=== PATIENT | male | born 1985 | race Caucasian/White ===

== ENCOUNTER 2017-06-18 01:23 | Emergency (ER) | payer BC ==
[~2017-06-18] VITALS: Ht 182.9 cm; Wt 129.0 kg
[2017-06-18 06:38] VITALS: BP 145/85
== END 2017-06-18 06:39 | disposition home or self-care (01) ==
LOC: EME 01:23
DX: M54.2 Cervicalgia (principal); I10 Essential (primary) hypertension; F17.200 Nicotine dependence, unspecified, uncomplicated
CPT/HCPCS: 70360; 87651 90; 99281; 99284